=== PATIENT | female | born 1940 | race Caucasian/White ===

== ENCOUNTER 2022-05-17 17:57 | Emergency (ER) | payer MEDICARE, OTHER ==
[2022-05-17] MEDS ORDERED: Iopamidol 755 Mg/ML 100 ML Bottle IV ONE (19:14)
[2022-05-17] MEDS ORDERED: Pramipexole 0.25 MG Tab PO STA (19:18)
[2022-05-17 19:28] LABS: ESTIMATED GFR 50 mL/min (>60)
== END 2022-05-17 22:20 | disposition home or self-care (01) ==
LOC: FB.ED 17:57
DX: M54.6 Pain in thoracic spine (principal); R60.0 Localized edema; I10 Essential (primary) hypertension; Z88.1 Allergy status to other antibiotic agents; Z91.013 Allergy to seafood; Z88.8 Allergy status to other drugs, medicaments and biological substances; Z79.82 Long term (current) use of aspirin
CPT/HCPCS: 36415; 71275; 74175; 80048; 85025; 99284; A9270; Q9967

== ENCOUNTER 2022-09-18 14:19 | Emergency (ER) | payer MEDICARE, OTHER ==
[2022-09-18] MEDS ORDERED: Meclizine 25 MG Tab PO ONE (14:36)
[2022-09-18] MEDS ORDERED: Meclizine 25 MG Tab ONE (14:37)
[2022-09-18 15:04] LABS: ESTIMATED GFR 63 mL/min (>60)
== END 2022-09-18 15:36 | disposition home or self-care (01) ==
LOC: FB.ED 14:19
DX: H81.10 Benign paroxysmal vertigo, unspecified ear (principal); E86.0 Dehydration; I10 Essential (primary) hypertension; Z79.899 Other long term (current) drug therapy
CPT/HCPCS: 36415; 70450; 80053; 84484; 85025; 93005; 99284; A9270

== ENCOUNTER 2022-11-09 20:06 | Emergency (ER) | payer MEDICARE, OTHER ==
[2022-11-09 20:54] LABS: ESTIMATED GFR 73 mL/min (>60)
[2022-11-09] MEDS ORDERED: hydrALAZINE 20 MG/ML SDV IVPUSH ONE (21:04)
== END 2022-11-09 22:09 | disposition home or self-care (01) ==
LOC: FB.ED 20:06
DX: I16.0 Hypertensive urgency (principal); Z88.8 Allergy status to other drugs, medicaments and biological substances; Z79.899 Other long term (current) drug therapy
CPT/HCPCS: 80053; 84484; 85025; 93005; 96374; 99283; J0360

== ENCOUNTER 2023-12-12 17:06 | Emergency (ER) | payer MEDICARE, OTHER ==
[2023-12-12] MEDS ORDERED: Sulfamethoxazole/Trimethoprim 800-160 MG Tab PO ONE (17:07)
[2023-12-12] MEDS ORDERED: Sodium Chloride 0.9% 10 ML Syringe FLUSH PRN (17:44)
[2023-12-12] MEDS ORDERED: amLODIPine 10 MG Tab PO STA (17:46)
[2023-12-12] MEDS ORDERED: Labetalol 20 MG/4 ML Syringe IVPUSH ONE (17:46)
[2023-12-12 18:02] LABS: BASOPHILS ABSOLUTE AUTO 0.1 x10-3/uL (0.0-0.1); BASOPHILS PERCENT AUTO 1.1 % (0.2-1.5); EOSINOPHILS ABSOLUTE AUTO 0.3 x10-3/uL (0.0-0.8); EOSINOPHILS PERCENT AUTO 2.8 % (0.6-8.1); HEMATOCRIT 39.5 % (34.2-48.2); HEMOGLOBIN 12.8 g/dL (11.4-15.5); LYMPHOCYTES ABSOLUTE AUTO 1.3 x10-3/uL (1.0-4.4); LYMPHOCYTES PERCENT AUTO 13.9 % (18.4-52.1); MEAN CORPUSCULAR HEMOGLOBIN 27.3 pg (23.9-33.9); MEAN CORPUSCULAR HGB CONC 32.4 g/dL (31.9-34.8); MEAN CORPUSCULAR VOLUME 84.4 fL (76.7-100.5); MEAN PLATELET VOLUME 6.9 fL (7.1-12.4); MONOCYTES ABSOLUTE AUTO 0.7 x10-3/uL (0.3-1.0); MONOCYTES PERCENT AUTO 7.5 % (4.4-15.7); NEUTROPHILS ABSOLUTE AUTO 6.7 x10-3/uL (1.5-6.3); NEUTROPHILS PERCENT AUTO 74.7 % (30.8-76.2); PLATELET COUNT,PLT 352 x10(3)uL (151-488); RED BLOOD CELL COUNT 4.68 x10(6)uL (3.60-5.20); RED CELL DISTRIBUTION WIDTH 15.6 % (12.3-16.5)
[2023-12-12 18:05] LABS: BLOOD UREA NITROGEN,BUN 23 mg/dL (7-18); BUN/CREATININE RATIO 25.6 (9-20); CALCIUM 8.8 mg/dL (8.6-10.2); CARBON DIOXIDE,CO2 26 mmol/L (21-32); CHLORIDE,CL 104 mmol/L (100-110); CREATININE 0.9 mg/dL (0.55-1.02); ESTIMATED GFR 63 mL/min (>60); GLUCOSE RANDOM 112 mg/dL (80-116); POTASSIUM,K 4.4 mmol/L (3.5-5.3); SODIUM,NA 140 mmol/L (135-145)
[2023-12-12 18:11] LABS: ALANINE AMINOTRANSFERASE,ALT 20 U/L (12-36); ALBUMIN 3.6 g/dL (3.2-4.6); ALKALINE PHOSPHATASE 155 IU/L (56-112); ASPARTATE AMNIOTRANSFERASE,AST 13 IU/L (5-25); BILIRUBIN TOTAL 0.5 mg/dL (0.1-1.3); PROTEIN TOTAL,TP 7.4 g/dL (6.0-8.0)
[2023-12-12 18:17] LABS: TROPONIN I 12.9 pg/mL (4.0-60.3)
[2023-12-12 18:55] LABS: BILIRUBIN,URINE NEGATIVE (NEGATIVE); GLUCOSE,URINE NORMAL (NORMAL); KETONES,URINE NEGATIVE (NEGATIVE); LEUKOCYTE ESTERASE,URINE SMALL (NEGATIVE); NITRITE,URINE POSITIVE (NEGATIVE); OCCULT BLOOD,URINE NEGATIVE (NEGATIVE); PROTEIN,URINE NEGATIVE (NEGATIVE); UROBILINOGEN,URINE NORMAL (NEGATIVE)
[2023-12-12 19:02] LABS: APPEARANCE,URINE CLEAR (CLEAR); BACTERIA,URINE MODERATE (NS); COLOR,URINE YELLOW (YELLOW); RBC,URINE 0-5 (0-5); SQUAMOUS EPITHELIAL CELLS,UR FEW (NS,R,O)
== END 2023-12-12 19:40 | disposition home or self-care (01) ==
LOC: FB.ED 17:06
DX: I16.9 Hypertensive crisis, unspecified (principal); N39.0 Urinary tract infection, site not specified; Z79.82 Long term (current) use of aspirin; Z79.899 Other long term (current) drug therapy; Z91.018 Allergy to other foods; Z88.1 Allergy status to other antibiotic agents; Z88.8 Allergy status to other drugs, medicaments and biological substances; Z88.6 Allergy status to analgesic agent
CPT/HCPCS: 70450; 80053; 81001; 83880; 84484; 85025; 87086; 87088; 87186; 93005; 93010; 96374; 99284; 99284-25; A9270-GY; J1920

== ENCOUNTER 2024-01-12 23:58 | Emergency (ER) | payer MEDICARE, OTHER ==
[2024-01-12] MEDS ORDERED: ALPRAZolam 0.5 MG Tab PO ONE (23:59)
== END 2024-01-13 00:23 | disposition home or self-care (01) ==
LOC: FB.ED 23:58
DX: G25.81 Restless legs syndrome (principal); I10 Essential (primary) hypertension; Z79.82 Long term (current) use of aspirin; Z79.899 Other long term (current) drug therapy; Z88.1 Allergy status to other antibiotic agents; Z88.8 Allergy status to other drugs, medicaments and biological substances; Z91.018 Allergy to other foods
CPT/HCPCS: 99283; A9270-GY

== ENCOUNTER 2024-02-09 18:19 | Emergency (ER) | payer MEDICARE, OTHER ==
[2024-02-09] MEDS ORDERED: Labetalol 20 MG/4 ML Syringe IVPUSH ONE (18:35)
[2024-02-09] MEDS: Labetalol 20 MG/4 ML Syringe IVPUSH ONE (18:40)
[2024-02-09] MEDS: Sodium Chloride 0.9% 10 ML Syringe FLUSH PRN (18:40)
[2024-02-09 18:41] LABS: BASOPHILS ABSOLUTE AUTO 0.1 x10-3/uL (0.0-0.1); BASOPHILS PERCENT AUTO 1.3 % (0.2-1.5); EOSINOPHILS ABSOLUTE AUTO 0.1 x10-3/uL (0.0-0.8); EOSINOPHILS PERCENT AUTO 1.9 % (0.6-8.1); HEMATOCRIT 38.5 % (34.2-48.2); HEMOGLOBIN 12.7 g/dL (11.4-15.5); LYMPHOCYTES ABSOLUTE AUTO 1.2 x10-3/uL (1.0-4.4); LYMPHOCYTES PERCENT AUTO 15.9 % (18.4-52.1); MEAN CORPUSCULAR HEMOGLOBIN 27.8 pg (23.9-33.9); MEAN CORPUSCULAR VOLUME 84.2 fL (76.7-100.5); MEAN PLATELET VOLUME 6.7 fL (7.1-12.4); MONOCYTES ABSOLUTE AUTO 0.5 x10-3/uL (0.3-1.0); MONOCYTES PERCENT AUTO 6.8 % (4.4-15.7); NEUTROPHILS ABSOLUTE AUTO 5.6 x10-3/uL (1.5-6.3); NEUTROPHILS PERCENT AUTO 74.1 % (30.8-76.2); PLATELET COUNT,PLT 352 x10(3)uL (151-488); RED BLOOD CELL COUNT 4.57 x10(6)uL (3.60-5.20); RED CELL DISTRIBUTION WIDTH 16.5 % (12.3-16.5); WHITE BLOOD CELL COUNT,WBC 7.5 x10-3/uL (3.0-10.3)
[2024-02-09 18:42] LABS: BLOOD UREA NITROGEN,BUN 34 mg/dL (7-18); CARBON DIOXIDE,CO2 22 mmol/L (21-32); CHLORIDE,CL 106 mmol/L (100-110); ESTIMATED GFR 55 mL/min (>60); GLUCOSE RANDOM 97 mg/dL (80-116); POTASSIUM,K 4.2 mmol/L (3.5-5.3); SODIUM,NA 142 mmol/L (135-145)
[2024-02-09 18:48] LABS: ALANINE AMINOTRANSFERASE,ALT 17 U/L (12-36); ALBUMIN 3.8 g/dL (3.2-4.6); ALKALINE PHOSPHATASE 150 IU/L (56-112); ASPARTATE AMNIOTRANSFERASE,AST 15 IU/L (5-25); BILIRUBIN TOTAL 0.7 mg/dL (0.1-1.3); PROTEIN TOTAL,TP 7.6 g/dL (6.0-8.0)
[2024-02-09 18:56] LABS: TROPONIN I 9.6 pg/mL (4.0-60.3)
== END 2024-02-09 19:05 | disposition home or self-care (01) ==
LOC: FB.ED 18:19
DX: I16.9 Hypertensive crisis, unspecified (principal); Z79.899 Other long term (current) drug therapy; Z79.82 Long term (current) use of aspirin; Z88.1 Allergy status to other antibiotic agents; Z88.8 Allergy status to other drugs, medicaments and biological substances; Z88.0 Allergy status to penicillin; Z91.018 Allergy to other foods
CPT/HCPCS: 36415; 80053; 83880; 84484; 85025; 96374; 99283; 99284; J1920; J3490

== ENCOUNTER 2025-01-08 11:40 | Emergency (ER) | payer MEDICARE, OTHER ==
[2025-01-08 12:42] LABS: BASOPHILS PERCENT AUTO 0.5 % (0.2-1.5); EOSINOPHILS PERCENT AUTO 0.3 % (0.6-8.1); HEMATOCRIT 34.9 % (34.2-48.2); HEMOGLOBIN 11.8 g/dL (11.4-15.5); LYMPHOCYTES ABSOLUTE AUTO 0.7 x10-3/uL (1.0-4.4); LYMPHOCYTES PERCENT AUTO 8.8 % (18.4-52.1); MEAN CORPUSCULAR HEMOGLOBIN 29.8 pg (23.9-33.9); MEAN CORPUSCULAR HGB CONC 33.9 g/dL (31.9-34.8); MEAN PLATELET VOLUME 6.7 fL (7.1-12.4); MONOCYTES ABSOLUTE AUTO 0.9 x10-3/uL (0.3-1.0); MONOCYTES PERCENT AUTO 10.8 % (4.4-15.7); NEUTROPHILS ABSOLUTE AUTO 6.7 x10-3/uL (1.5-6.3); NEUTROPHILS PERCENT AUTO 79.6 % (30.8-76.2); PLATELET COUNT,PLT 230 x10(3)uL (151-488); RED BLOOD CELL COUNT 3.96 x10(6)uL (3.60-5.20); RED CELL DISTRIBUTION WIDTH 13.9 % (12.3-16.5); WHITE BLOOD CELL COUNT,WBC 8.5 x10-3/uL (3.0-10.3)
[2025-01-08 12:45] LABS: BLOOD UREA NITROGEN,BUN 28 mg/dL (7-18); BUN/CREATININE RATIO 17.5 (9-20); CALCIUM 7.8 mg/dL (8.6-10.2); CARBON DIOXIDE,CO2 26 mmol/L (21-32); CHLORIDE,CL 103 mmol/L (100-110); CREATININE 1.6 mg/dL (0.55-1.02); EST CRCL DRUG DOSING (CG) 24.06 mL/min; ESTIMATED GFR 31 mL/min (>60); GLUCOSE RANDOM 106 mg/dL (80-116); POTASSIUM,K 4.2 mmol/L (3.5-5.3); SODIUM,NA 136 mmol/L (135-145)
[2025-01-08 12:51] LABS: A/G RATIO 0.8; ALANINE AMINOTRANSFERASE,ALT 37 U/L (12-36); ALBUMIN 3.1 g/dL (3.2-4.6); ALKALINE PHOSPHATASE 145 IU/L (56-112); ASPARTATE AMNIOTRANSFERASE,AST 24 IU/L (5-25); BILIRUBIN TOTAL 1.4 mg/dL (0.1-1.3); PROTEIN TOTAL,TP 7.1 g/dL (6.0-8.0)
[2025-01-08] MEDS: Sodium Chloride 0.9% 1,000 ML IV ONE (13:10)
[2025-01-08 14:45] LABS: BILIRUBIN,URINE NEGATIVE (NEGATIVE); GLUCOSE,URINE NORMAL (NORMAL); KETONES,URINE NEGATIVE (NEGATIVE); LEUKOCYTE ESTERASE,URINE LARGE (NEGATIVE); NITRITE,URINE NEGATIVE (NEGATIVE); OCCULT BLOOD,URINE MODERATE (NEGATIVE); PROTEIN,URINE TRACE mg/dL (NEGATIVE); UROBILINOGEN,URINE NORMAL (NEGATIVE)
[2025-01-08 14:46] LABS: APPEARANCE,URINE CLOUDY (CLEAR); COLOR,URINE YELLOW (YELLOW)
[2025-01-08 14:52] LABS: BACTERIA,URINE MANY (NS); SQUAMOUS EPITHELIAL CELLS,UR FEW (NS,R,O); WBC,URINE >100 (0-5)
[2025-01-08] MEDS: Sodium Chloride 0.9% 10 ML Syringe FLUSH PRN (15:52)
[2025-01-08] MEDS: cefTRIAXone 1 GM Vial IVPUSH ONE (15:52)
[2025-01-08] MEDS: Sulfamethoxazole/Trimethoprim 800-160 MG Tab PO ONE (16:00)
== END 2025-01-08 16:23 | disposition home or self-care (01) ==
LOC: FB.ED 11:40
DX: N39.0 Urinary tract infection, site not specified (principal); B96.89 Other specified bacterial agents as the cause of diseases classified elsewhere; I10 Essential (primary) hypertension; Z88.1 Allergy status to other antibiotic agents; Z91.013 Allergy to seafood; Z88.8 Allergy status to other drugs, medicaments and biological substances; Z79.82 Long term (current) use of aspirin; Z79.899 Other long term (current) drug therapy
CPT/HCPCS: 36415; 71046; 80053; 81001; 84484; 85025; 86140; 87086; 87088; 87186; 87428; 93005; 96361; 96374; 99285; A9270; J0696; J7030

== ENCOUNTER 2025-03-19 22:05 | Emergency (ER) | payer MEDICARE, OTHER ==
[2025-03-19] MEDS: hydrOXYzine HCl 50 MG/ML SDV IM ONE (23:50)
[2025-03-19] MEDS: QUEtiapine 25 MG Tab PO ONE (23:50)
[2025-03-19] MEDS: Ketorolac 30 MG/ML SDV IM ONE (23:51)
== END 2025-03-20 00:16 | disposition home or self-care (01) ==
LOC: FB.ED 22:05
DX: G25.81 Restless legs syndrome (principal); I10 Essential (primary) hypertension; Z88.8 Allergy status to other drugs, medicaments and biological substances; Z79.82 Long term (current) use of aspirin; Z79.899 Other long term (current) drug therapy
CPT/HCPCS: 96372; 99283; A9270; J1885; J3410